=== PATIENT | male | born 1960 | race Two or more races ===

== ENCOUNTER 2021-02-03 07:15 | Day surgery (SDC) | payer OTHER | END 2021-02-03 12:00 | disposition home or self-care (01) | LOC: AMB-ENDOS 07:15 → CIR.AMB 13:00 | PROVIDERS: ATTEND Surgery | DX: D12.2 Benign neoplasm of ascending colon (principal); K64.8 Other hemorrhoids; Z20.822 Contact with and (suspected) exposure to COVID-19 ==